=== PATIENT | male | born 1945 | race African-American/Black ===

== ENCOUNTER → 2016-12-07 | Outpatient (CLI) | payer BC ==
[2015-08-06 11:00] VITALS: BP 89/53
[~2016-12-07] MED LIST: ASPI-482 PO; ASPI325T11 PO; ATOR10TA60 PO; CARV3.122 PO; CILO100T PO; FERR325T72 PO; FURO40TA4 PO; LISI10TA2 PO; METO25TA4 PO; OXYC1TAB7 PO; POTA10TA12 PO
--- NOTE | 2016-12-07 13:04 | CARD ---
APPROVED REPORT EXAM: Two-dimensional and M-mode echocardiogram with Doppler and color Doppler. Other Information Quality : Average Rhythm : NSR INDICATION Cardiac Disease: CAD 2D DIMENSIONS RVDd2.8 (2.9-3.5cm)Left Atrium(2D)3.4 (1.6-4.0cm) IVSd0.8 (0.7-1.1cm)Aortic Root(2D)2.8 (2.0-3.7cm) LVDd4.3 (3.9-5.9cm)LVOT Diameter2.0 (1.8-2.4cm) PWd0.8 (0.7-1.1cm)LVDs2.1 (2.5-4.0cm) FS (%) 31.9 %SV69.5 ml LVEF(%)63.3 (>50%) Aortic Valve AoV Peak Wilbur.104.7cm/sAoV VTI24.9cm AO Peak GR.4.4mmHgLVOT Peak Wilbur.101.9cm/s LVOT VTI 23.97cmAO Mean GR.3mmHg JOSE MANUEL (VMAX)3.72xf3QHI (VTI)3.04cm2 Mitral Valve MV E Hhufyqjr38.7cm/sMV DECEL ECLF518km MV A Uvjobies26.6cm/sMV E Mean Gr.1mmHg MV WYA86gwC/A Ratio1.0 MV A Efkxzbwp700ztHEA (PHT)3.52cm2 TDI E/Lateral E'7.8E/Medial E'14.3 Pulmonary Valve PV Peak Eccajirf34.8cm/sPV Peak Grad.2mmHg RVOT VTI12.6cm Tricuspid Valve TR P. Kkxpfqvo757ez/sRAP OVYLSBBQ9daAs TR Peak Gr.37ltWwNVNR90mrKa Pulmonary Vein S1 Jrpsnypa83.7cm/sD2 Gneomhpf51.5cm/s LEFT VENTRICLE The left ventricle is normal size. There is normal left ventricular wall thickness. Left ventricle sy stolic function is normal. The Ejection Fraction is 60-65%. There is normal LV segmental wall motion. The left ventricular diastolic function and filling is normal for age. There is no ventricular septa l defect visualized. RIGHT VENTRICLE The right ventricle is normal size. The right ventricular systolic function is normal. ATRIA The left atrium size is normal. The right atrium size is normal. The interatrial septum is intact wit h no evidence for an atrial septal defect or patent foramen ovale as noted on 2-D or Doppler imaging. AORTIC VALVE The non coronary cusp is mildly calcified. The aortic valve is trileaflet. Doppler and Color Flow rev ealed no significant aortic regurgitation. There is no significant aortic valvular stenosis. MITRAL VALVE Mitral annular calcification is mild. There is no mitral valve stenosis. Doppler and Color Flow revea led mild mitral regurgitation. TRICUSPID VALVE The tricuspid valve is not well visualized. Doppler and Color Flow revealed trace to mild tricuspid r egurgitation. The PA pressure was estimated at 18 mmHg. There is no tricuspid valve stenosis. PULMONIC VALVE The pulmonic valve is not well visualized. Doppler and Color Flow revealed no pulmonic valvular regur gitation. There is no pulmonic valvular stenosis. GREAT VESSELS The aortic root is normal in size. Normal pulmonary venous flow (Doppler). The IVC was not well visua lized. PERICARDIAL EFFUSION There is no evidence of significant pericardial effusion. Critical Notification Critical Value: No <Conclusion> Left ventricle systolic function is normal. The Ejection Fraction is 60-65%. There is normal LV segmental wall motion. Mild mitral regurgitation. Trace to mild tricuspid regurgitation. The PA pressure was estimated at 18 mmHg. There is no evidence of significant pericardial effusion.
== END | disposition home or self-care (01) ==
LOC: ECHO 10:50
PROVIDERS: ATTEND Internal Medicine Cardiovascular Disease
DX: I08.1 Rheumatic disorders of both mitral and tricuspid valves (principal)
CPT/HCPCS: 93306

== ENCOUNTER → 2017-12-13 | Outpatient (CLI) | payer BC ==
[~2017-12-13] MED LIST changes: -ASPI-482 PO; -ASPI325T11 PO; -ATOR10TA60 PO; -CARV3.122 PO; -CILO100T PO; -FERR325T72 PO; -FURO40TA4 PO; -LISI10TA2 PO; -METO25TA4 PO; -OXYC1TAB7 PO; +PERFLUTREN PROTEIN-A MICROSPHR 0.22 MG/ML 3 ML VIAL. IV; -POTA10TA12 PO
[2017-12-13] MEDS: PERFLUTREN PROTEIN-A MICROSPHR 0.22 MG/ML 3 ML VIAL. IV (11:31)
== END | disposition home or self-care (01) ==
LOC: ECHO 09:01
DX: I25.10 Atherosclerotic heart disease of native coronary artery without angina pectoris (principal); I36.1 Nonrheumatic tricuspid (valve) insufficiency; K21.9 Gastro-esophageal reflux disease without esophagitis; I13.0 Hypertensive heart and chronic kidney disease with heart failure and stage 1 through stage 4 chronic kidney disease, or unspecified chronic kidney disease; I50.9 Heart failure, unspecified; N18.2 Chronic kidney disease, stage 2 (mild); E83.42 Hypomagnesemia; E78.5 Hyperlipidemia, unspecified; E78.00 Pure hypercholesterolemia, unspecified; Z68.29 Body mass index [BMI] 29.0-29.9, adult
CPT/HCPCS: C8929; Q9956

== ENCOUNTER → 2018-01-03 | Outpatient (CLI) | payer BC ==
[2015-08-06 11:00] VITALS: BP 89/53
[~2018-01-03] MED LIST changes: +ASPI-482 PO; +ASPI325T11 PO; +ATOR10TA60 PO; +CARV3.122 PO; +CILO100T PO; +FERR325T72 PO; +FURO40TA4 PO; +LISI10TA2 PO; +METO25TA4 PO; +OXYC1TAB7 PO; -PERFLUTREN PROTEIN-A MICROSPHR 0.22 MG/ML 3 ML VIAL. IV; +POTA10TA12 PO
--- NOTE | 2018-01-04 07:42 | RAD ---
MR#: [id number] Date of Study: 01/03/2018 Ordering Physician: JONAS SANTORO, Referring Physician: JONAS SANTORO, Tech: Alexia Silveira, VANIA, RVT, RTR APPROVED REPORT Patient Location: OUT-PATIENT Indications Edema PAD Lower Extremity Discoloration VELOCITY AND DOPPLER WAVEFORM ANALYSIS RIGHT cm/secWaveformSeverity LEFT cm/secWaveform Severity pCFA 211.7pCFA 274.3 dCFA dCFA 183.4 Prof Fem Art. 170.1Prof Fem Art. 105.3 Fem Art Prox. 148.1Fem Art Prox. 208.2 Fem Art Mid. 103.0Fem Art Mid. 109.4 Fem Art Dist. 114.5Fem Art Dist. 113.6 Pop Art(AK) 256.0Pop Art(AK) 95.7 PARI MUTUEL TICKET CASHIER Dist. 21.3PTA Dist. Per Art Prox. 109.9Per Art Prox. 44.6 BAILEY Prox. BAILEY Prox. 49.6 BAILEY Dist. 34.0ATA Dist. DPA 25DPA 80 Findings Grayscale images of the bilateral lower extremity arterial vessels demonstrate diffuse moderate to se tanja atherosclerotic plaque. Spectral waveforms are monophasic throughout the arterial course suggestive of loss of arterial elast icity and/or severe LV dysfunction. There are elevated velocities in the common femoral artery bilaterally suggestive of inflow disease e specially in light of the monophasic waveforms. There is probable greater than 50% stenosis involving the right popliteal artery with a peak systolic velocity of 256 7 m/s. Suspect one-vessel runoff in the form of peroneal artery with severe diffuse disease of the posterior tibial and anterior tibial arteries on the right. There is likely a diffuse 50% stenosis involving the mid to distal SFA and popliteal artery. The post erior tibial artery was not visualized. Blunted waveforms are noted in the peroneal and anterior tibi al artery with diminished velocities. Critical Notification Critical Value: No <Conclusion> 1. 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 Signed by : Bhargav Wiggins, Electronically Approved : 01/04/2018 07:41:56
--- NOTE | 2018-01-04 07:46 | RAD ---
MR#: [id number] Date of Study: 01/03/2018 Ordering Physician: JONAS SANTORO, Referring Physician: JONAS SANTORO, Tech: Alexia Silveira RDMS, RVT, RTR APPROVED REPORT Patient Location : OUT-PATIENT Indications Lower Extremity Edema : Bilateral Skin Changes Greater Saphenous Veins (GSV) Significant venous relux noted in the RIGHT GSV at the following levels : Superficial Femoral Junctio n, Proximal Thigh, Mid Thigh, Distal Thigh, Proximal Calf, Mid Calf, Distal Calf Significant venous relux noted in the LEFT GSV at the following levels : Superficial Femoral Junction , Proximal Thigh, Mid Thigh, Distal Thigh, Proximal Calf, Mid Calf, Distal Calf Findings Grayscale images of the saphenofemoral junctions and the right and left saphenous veins does not reve al any obvious evidence of thrombus. The proximal left great saphenous vein appears to been harvested for prior bypass. Incidental findings of a maximum 2.5 x 1.3 cm lymph node in the right groin as well as a 2.4 x 1.6 x 1.5 cm seroma noted in the left groin from previous scar related to bypass surgery. There is no evidence of reflux in the left mid to distal greater saphenous vein and lesser saphenous vein. On the right there is mild reflux at a maximum time of 1.1 seconds noted in the greater saphenous vei n. No reflux in the right lesser saphenous vein. Critical Notification Critical Value: No <Conclusion> 1. Minimally positive reflux in the right great saphenous vein. Otherwise unremarkable for reflux 2. Enlarged lymph node in the right groin with measurements as noted above 3. Incidental finding of a seroma with measurements as noted above in the left groin. Signed by : Bhargav Wiggins, Electronically Approved : 01/04/2018 07:45:47
== END | disposition home or self-care (01) ==
LOC: US 12:42
PROVIDERS: ATTEND Internal Medicine Cardiovascular Disease
DX: I73.9 Peripheral vascular disease, unspecified (principal); R60.0 Localized edema; R59.9 Enlarged lymph nodes, unspecified; N18.2 Chronic kidney disease, stage 2 (mild); M19.90 Unspecified osteoarthritis, unspecified site; I25.10 Atherosclerotic heart disease of native coronary artery without angina pectoris; K21.9 Gastro-esophageal reflux disease without esophagitis; Z87.891 Personal history of nicotine dependence
CPT/HCPCS: 93925; 93970

== ENCOUNTER → 2018-09-25 | Outpatient (CLI) | payer BC ==
[2018-01-18 13:50] VITALS: BP 146/65
[~2018-09-25] MED LIST changes: +CARV3.1210 PO; -CARV3.122 PO; +FURO20TA3 PO; +POTA8CAP PO
--- NOTE | 2018-09-26 08:13 | RAD ---
MR#: [id number] Date of Study: 09/25/2018 Ordering Physician: JONAS SANTORO, Referring Physician: JONAS SANTORO, Tech: Halley Cummins RVT, RDMS APPROVED REPORT Patient Location: OUT-PATIENT Laterality:Bilateral Indications Bruit Risk Factors Hypertension: Smoking Previous smoker for 35 years Doppler Spectral Velocity Analysis Right Left pCCA 70/11 cm/spCCA 104/15 cm/s mCCA 90/11 cm/smCCA 102/16 cm/s dCCA 66/11 cm/sdCCA 77/12 cm/s ECA 141/12 cm/sECA 168/17 cm/s pICA 204/63 cm/spICA 57/16 cm/s Sigifredo 145/34 cm/smICA 265/68 cm/s dICA 78/15 cm/sdICA 222/40 cm/s Vert. 59/ cm/sVert. 30/ cm/s ICA/CCA 2.27ICA/CCA 2.55 Findings Grayscale images of the bilateral carotid arteries is partially limited due to tortuous internal albright tid arteries. There is plaque seen bilaterally mostly localized to the bulb and internal carotid vess els. On the right peak systolic velocities are suggestive of an overall 50-69% stenosis. On the left there is a suggestion of greater than 70% stenosis involving the mid internal carotid artery. ICA to CCA ratios is approximately 2.6. The vertebral velocities are antegrade bilaterally. Critical Notification Critical Value: No <Conclusion> 1. Probable moderate and severe stenosis involving the right and left carotid arteries respectively. 2. Due to the tortuous nature of the carotid arteries could consider CT angiogram of the neck for fur ther delineation. Signed by : Bhargav Wiggins, Electronically Approved : 09/26/2018 08:13:25
== END | disposition home or self-care (01) ==
LOC: US 15:31
PROVIDERS: ATTEND Internal Medicine Cardiovascular Disease
DX: I65.23 Occlusion and stenosis of bilateral carotid arteries (principal); I77.1 Stricture of artery; I10 Essential (primary) hypertension; Z87.891 Personal history of nicotine dependence
CPT/HCPCS: 93880

== ENCOUNTER → 2018-10-09 | Outpatient (CLI) | payer BC ==
[2018-01-18 13:50] VITALS: BP 146/65
[~2018-10-09] MED LIST changes: +CONTRAST GIVEN. MC PRN; +IOHEXOL 300 MG/ML 100ML VIAL. IV ONE; +IOHEXOL 350 MG/ML 100 ML VIAL. ONE
[2018-10-09 10:41] LABS: GFR 88.6
--- NOTE | 2018-10-09 15:23 | RAD ---
CTA of the neck without comparison for carotid stenosis. TECHNIQUE: Contiguous helical 1 mm axial images are obtained from the aortic arch to the skull base following administration of IV contrast in the arterial phase. Sagittal and coronal MIPS and 3-D volume rendered vascular images are evaluated. FINDINGS: Nonvascular: Lung apices are clear. There has been a prior median sternotomy. No suspicious adenopathy is identified. Parotid glands are normal. The mastoid air cells are clear. Visualized paranasal sinuses are clear. There is significant nasal septal deviation to the left. There is a mixed lytic and blastic appearance of the maxilla diffusely, with areas of lateral erosions along the right lateral maxilla. The maxilla is edentulous. Findings are likely due to sequelae of prior periodontal infection. Active disease cannot be excluded. Severe multilevel degenerative changes of the cervical spine are present with bulky posterior osteophytes and ossification of the posterior longitudinal ligament at multiple levels. This likely creates some degree of bony canal stenosis which could be better evaluated with MRI if clinically warranted. Vascular findings: There is patchy atherosclerosis of the aortic arch. The great vessels are patent. Brachycephalic artery is free of any significant disease. On the right, there is mild atherosclerosis of the common carotid artery with no significant stenosis. There is bulky calcified atherosclerosis of the right internal carotid artery at its origin, resulting in roughly 65 percent stenosis. There is moderate multifocal atherosclerosis throughout the high cervical and intracranial internal carotid artery as well, and there is a bulky soft atherosclerotic plaque within the cavernous segment which appears to result in greater than 50 percent focal stenosis. On the left, there is mild atherosclerosis of the common carotid artery with no significant stenosis. There is dense atherosclerosis of the origin of the left internal carotid artery resulting in roughly 60 percent stenosis. Mild to moderate changes are seen throughout the high cervical and intracranial internal carotid artery as well, and there may be a stenosis in excess of 50 percent at the terminal aspect of the petrous portion of the left internal carotid artery. There is a 50 percent stenosis of the proximal left subclavian artery. Vertebral arteries are codominant and widely patent save for mild narrowing at their origins. Left PICA is widely patent. Origin of the right PICA is not identified. Bilateral anterior inferior cerebellar arteries are patent as are superior cerebellar arteries. There is a patent left posterior communicating artery. Both posterior cerebral arteries are patent, though the P1 segments are not included on the exam. The A1 segments of the anterior cerebral arteries are also not included as well. IMPRESSION: 1. Right proximal internal carotid artery stenosis of approximately 65 percent. There is likely a stenosis of the intracranial internal carotid artery of greater than 50 percent as well. 2. Left proximal internal carotid artery stenosis of approximate 60 percent. There is likely a stenosis of the intracranial internal carotid artery of greater than 50 percent on this side also. 3. Approximately 50 percent stenosis of the left proximal subclavian artery. 4. Codominant and patent vertebral arteries. 5. Severe cervical spinal canal stenosis due to degenerative disc disease and posterior longitudinal ligament ossification. If clinically warranted, this could be better characterized with MRI. 6. Abnormal mixed lytic and blastic permeative appearance of the maxilla with lateral erosions. This is likely due to sequelae of long-standing severe periodontal disease. Active infection cannot be excluded. Stenosis calculations for CT, MR and conventional angiography are based upon measurement of the distal ICA diameter in accordance with the NASCET methodology. Stenosis calculations for carotid ultrasound studies are derived from validated velocity criteria which are known to correlate with the NASCET methodology. RS Compliance Statement: One or more of the following individualized dose reduction techniques were utilized for this examination: 1. Automated exposure control 2. Adjustment of the mA and/or kV according to patient size 3. Use of iterative reconstruction technique Electronically signed by: Abdiel Holden MD (10/09/2018 3:20 PM) [facility]
== END | disposition home or self-care (01) ==
LOC: CT 10:06
PROVIDERS: ATTEND Internal Medicine Cardiovascular Disease
DX: I65.23 Occlusion and stenosis of bilateral carotid arteries (principal); I25.10 Atherosclerotic heart disease of native coronary artery without angina pectoris; M48.02 Spinal stenosis, cervical region; M50.30 Other cervical disc degeneration, unspecified cervical region; J34.2 Deviated nasal septum; M47.812 Spondylosis without myelopathy or radiculopathy, cervical region; M25.78 Osteophyte, vertebrae; I70.0 Atherosclerosis of aorta
CPT/HCPCS: 36415; 70498; 82565; Q9967

== ENCOUNTER → 2019-11-13 | Outpatient (CLI) | payer BC ==
[2018-01-18 13:50] VITALS: BP 146/65
[~2019-11-13] MED LIST changes: -CONTRAST GIVEN. MC PRN; -IOHEXOL 300 MG/ML 100ML VIAL. IV ONE; -IOHEXOL 350 MG/ML 100 ML VIAL. ONE; -POTA10TA12 PO; +POTASSIUM CHLO10 ME1 PO
--- NOTE | 2019-11-13 13:32 | CARD ---
MR#: [id number] Date of Study: 11/13/2019 Ordering Physician: JONAS SANTORO, Referring Physician: JONAS SANTORO, Tech: Alexia Malcolmjaime APPROVED REPORT EXAM: Two-dimensional and M-mode echocardiogram with Doppler and color Doppler. Other Information Quality : AverageHR: 79bpm INDICATION Cardiac Disease: CAD Surgery/Intervention CABG: Date: 2015 Site: [place] RISK FACTORS Hypertension Hyperlipidemia 2D DIMENSIONS RVDd2.7 (2.9-3.5cm)Left Atrium(2D)3.2 (1.6-4.0cm) IVSd0.8 (0.7-1.1cm)Aortic Root(2D)3.0 (2.0-3.7cm) LVDd4.9 (3.9-5.9cm)LVOT Diameter2.0 (1.8-2.4cm) PWd1.1 (0.7-1.1cm)LVDs3.0 (2.5-4.0cm) FS (%) 39.5 %SV78.5 ml LVEF(%)69.9 (>50%) Aortic Valve AoV Peak Wilbur.110.9cm/sAoV VTI19.6cm AO Peak GR.4.9mmHgLVOT Peak Wilbur.98.8cm/s LVOT VTI 23.17cmAO Mean GR.3mmHg JOSE MANUEL (VMAX)2.79hg6HPP (VTI)3.66cm2 Mitral Valve MV E Ntjzklrl32.0cm/sMV DECEL DCQX505su MV A Itpaobcf90.9cm/sMV E Mean Gr.2mmHg MV KOX26frQ/A Ratio0.8 MVA (PHT)2.93cm2 TDI E/Lateral E'8.4E/Medial E'13.0 Pulmonary Valve PV Peak Ifbyqedv12.9cm/sPV Peak Grad.3mmHg Tricuspid Valve TR P. Zdivtepy794tu/sRAP HTBYUPZU7dtIg TR Peak Gr.80kcJnLDAI61pyJm Pulmonary Vein S1 Haiegpoc88.3cm/sD2 Zzcsmrcp78.5cm/s PVa sboyporh670vsor LEFT VENTRICLE The left ventricle is normal size. There is borderline to mild concentric left ventricular hypertroph y. The left ventricular systolic function is normal and the ejection fraction is within normal range. The Ejection Fraction is 55%. There is normal LV segmental wall motion. Transmitral Doppler flow pat tern is Grade I-abnormal relaxation pattern. RIGHT VENTRICLE The right ventricle is normal size. There is normal right ventricular wall thickness. The right ventr icular systolic function is normal. ATRIA The left atrium size is normal. The right atrium size is normal. The interatrial septum is intact wit h no evidence for an atrial septal defect or patent foramen ovale as noted on 2-D or Doppler imaging. AORTIC VALVE The aortic valve is calcified but opens well. Doppler and Color Flow revealed no significant aortic r egurgitation. There is no significant aortic valvular stenosis. Calculated aortic valve area is 3.5 c m2 with maximum pressure gradient of 5 mmHg and mean pressure gradient of 3 mmHg. MITRAL VALVE The mitral valve is normal in structure and function. There is no evidence of mitral valve prolapse. There is no mitral valve stenosis. Doppler and Color-flow revealed trace mitral regurgitation. TRICUSPID VALVE The tricuspid valve is normal in structure and function. Doppler and Color Flow revealed trace tricus pid regurgitation with an estimated PAP of 29 mmHg. There is no tricuspid valve stenosis. PULMONIC VALVE The pulmonic valve is not well visualized. Doppler and Color Flow revealed trace pulmonic valvular re gurgitation. There is no pulmonic valvular stenosis. GREAT VESSELS The aortic root is normal in size. The IVC was not visualized. PERICARDIAL EFFUSION There is no evidence of significant pericardial effusion. Critical Notification Critical Value: No <Conclusion> The left ventricular systolic function is normal and the ejection fraction is within normal range. Th e Ejection Fraction is 55%. There is normal LV segmental wall motion. Signed by : Bhargav Wiggins, Electronically Approved : 11/13/2019 13:31:44
== END | disposition home or self-care (01) ==
LOC: ECHO 10:49
PROVIDERS: ATTEND Internal Medicine Cardiovascular Disease
DX: I35.8 Other nonrheumatic aortic valve disorders (principal); I25.10 Atherosclerotic heart disease of native coronary artery without angina pectoris
CPT/HCPCS: 93306

== ENCOUNTER → 2020-05-26 | Outpatient (CLI) | payer BC, MEDICARE ==
[2018-01-18 13:50] VITALS: BP 146/65
[~2020-05-26] MED LIST changes: +LISI10TA16 PO; -LISI10TA2 PO; +REGADENOSON 0.4 MG/5 ML DISP.SYRIN. IV ONE
--- NOTE | 2020-05-26 12:41 | RAD ---
MR#: [id number] Date of Study: 05/26/2020 Ordering Physician: JONAS SANTORO, Referring Physician: MARCELA FREGOSO Tech: Vida Sterling RT (R) (N) APPROVED REPORT Test Type: Pharmacological Stress Nurse/Tech: Gabriele Luz Rn Test Indications: CAD Cardiac History: CABG x5 in 2016, CAD, HTN, See EMR. Medications: ASA 81mg, See EMR. Medical History: See EMR. Resting ECG: SR Resting Heart Rate: 90 bpm Resting Blood Pressure: 135/71mmHg Pretest Chest Pain: No chest pain Nurse/Tech Notes Lungs CTA, Heart tones regular. Consent: The procedure was explained to the patient in lay terms. Informed consent was witnessed. Isra eout was entered into [facility] Com. History and Stress Test performed by TRUMAN Mckeon, PARKER (R) (N) Pharm. Details Pharmacologic stress testing was performed using 0.4mg per 5ml of regadenoson given intravenously ove r 7-10 seconds. Stress Symptoms Nausea POST EXERCISE Max HR: 118 bpm Max Blood Pressure: 135/63mmHg Blood Pressure response to exercise: Normal blood pressure response during stress. Heart Rate response to exercise: WNL Chest Pain: No. Arrhythmia: No. ST Change: No. INTERPRETATION Stress EKG Conclusion: No evidence of stress induced EKG changes. Imaging Protocol IMAGE PROTOCOL: Rest Tc-99m/stress Tc-99m 1 day Rest: Stress: Viability: Radiopharm.Tc99m XnukanxuiMv72v Sestamibi Dose10.4mCi 32mCi Duration 15min. 10min. Img Date 05/26/2020 05/26/2020 Inj-Img Souy11qzi. 60min. Rest Admin Site:IV - Left WristAdministrator:TRUMAN Mckeon ARRT (R)(N) Stress Admin Site: IV - Left WristAdministrator: TRUMAN Mckeon, PARKER (R)(N) STRESS DATA End Diast. Vol.26.0mlAv. Heart Xxnz204.0bpm End Syst. Vol.2.0mlCO Index BSA0.0L/min Myocardial Mass61.0gEject. Ojtnsesa00.0% Stress Rates Pk. Fill Rate5.13EDV/secLVtime Pk. Fill 74.74msec Pk. Empty Rate7.56ESV/secLVtime Pk. Eject92.19msec 1/3 Pk. Fill3.55EDV/sec Stress Scores Regional WT0.00Summed WT0.00 Regional WM0.00Summed WM3.00 The rest and stress images show normal perfusion, normal contraction and thickening. LV Perf. Quant 17 Seg. SSS2.00 17 Seg. SRS0.00 17 Seg. SDS2.00 Stress Defect Extent (% LAD)11.90Rest Defect Extent (% LAD)0.00Rev. Defect Extent (% LAD)6.90 Stress Defect Extent (% LCX) 7.50Rest Defect Extent (% LCX)0.00Rev. Defect Extent (% LCX)0.00 Stress Defect Extent (% RCA)0.00Rest Defect Extent (% RCA)0.00Rev. Defect Extent (% RCA)0.00 Stress Defect Extent (% ÁNGEL)7.00Rest Defect Extent (% ÁNGEL)0.00Rev. Defect Extent (% ÁNGEL)3.90 Other Information Quality:Good Risk Assessment: Low Risk Conclusion 1. No evidence of stress induced EKG changes. 2. Normal perfusion at stress/rest. 3. Normal EF at > 60%. 4. Low risk study. Signed by : Bhargav Wiggins, Electronically Approved : 05/26/2020 12:40:55
== END ==
LOC: NM 08:12
PROVIDERS: ATTEND Internal Medicine Cardiovascular Disease
DX: I25.10 Atherosclerotic heart disease of native coronary artery without angina pectoris (principal); I10 Essential (primary) hypertension
CPT/HCPCS: 78452; 93017; A9500; J2785

== ENCOUNTER → 2020-07-09 | Outpatient (CLI) | payer MEDICARE ==
[2018-01-18 13:50] VITALS: BP 146/65
[~2020-07-09] MED LIST changes: -REGADENOSON 0.4 MG/5 ML DISP.SYRIN. IV ONE
--- NOTE | 2020-07-09 12:39 | RAD ---
US ABDOMEN COMPLETE History: Reason: ELEVATED LFTS / Spl. Instructions: / History: Comparison: None. Technique: Sonographic examination of the abdomen. Findings: Liver: The liver measures 16.4 cm. Markedly increased hepatic echogenicity. No focal hepatic lesions . Hepatopetal flow in the portal vein. Gallbladder: Shadowing gallstone measures 1.7 cm diameter. No wall thickening or pericholecystic flui d. Bile ducts: The common duct measures 4 mm. Pancreas: Poorly visualized. Limited by bowel gas artifact. Spleen: 8.0 cm. Normal size and echotexture. No focal lesion. Right kidney: 11.8 cm in length. Inferior pole cyst measuring 3.2 cm. No calculi or hydronephrosis. Left kidney: 10.7 cm in length. Interpolar cyst measuring 3.5 cm. No calculi or hydronephrosis. Aorta/IVC: Limited evaluation. Visualized portions unremarkable. Other: No ascites. Impression: 1. Marked hepatic steatosis. 2. Cholelithiasis without evidence for acute cholecystitis. 3. Bilateral benign renal cysts. Electronically signed by: Prashanth Ceron MD (07/09/2020 12:37 PM) [facility]
== END ==
LOC: US 09:33
PROVIDERS: ATTEND Internal Medicine
DX: K80.20 Calculus of gallbladder without cholecystitis without obstruction (principal); N28.1 Cyst of kidney, acquired; K76.0 Fatty (change of) liver, not elsewhere classified
CPT/HCPCS: 76700

== ENCOUNTER → 2021-06-22 | Outpatient (CLI) | payer MEDICARE ==
[2018-01-18 13:50] VITALS: BP 146/65
--- NOTE | 2021-06-22 13:50 | RAD ---
EXAM: Bilateral digital diagnostic mammogram with tomosynthesis; bilateral breast sonogram. HISTORY: 75-year-old female presents with bilateral breast lumps. TECHNIQUE: Full-field digital craniocaudal and mediolateral oblique 2D and 3D tomosynthesis images of both breasts are obtained for evaluation. Computer aided detection was applied. Sonographic imaging of both breasts and axillary regions was performed. COMPARISON: None. BREAST PARENCHYMAL DENSITY: Level B - Scattered fibroglandular densities. FINDINGS: There is increased density within the anterior aspects of the right greater than left breas t, the mammographic appearance of which favors gynecomastia. There is no mass or architectural distor tion. There is no suspicious calcification. There are benign-appearing axillary lymph nodes. Specific imaging of both breasts demonstrates decreased echogenicity within the subareolar aspects of both breasts due to gynecomastia. No suspicious mass is seen. There is no suspicious axillary lymph node. IMPRESSION: 1. Mammographic and sonographic findings favoring a right greater than left gynecomastia. Correlate f or drug or endocrine related etiologies. 2. Continued clinical follow-up of palpable abnormalities is recommended. Negative imaging should not preclude the decision to biopsy a palpable abnormality if there is continuing concern. 3. BI-RADS Category 2: Benign finding(s). If your mammogram demonstrates that you have dense breast tissue, which could hide abnormalities, and if you have other risk factors for breast cancer that have been identified, you might benefit from s upplemental screening tests that may be suggested by your ordering physician. Dense breast tissue, i n and of itself, is a relatively common condition. This information is not provided to cause undue c oncern, but rather to raise your awareness and to promote discussion with your physician regarding th e presence of other risk factors, in addition to dense breast tissue. A report of your mammography re sults will be sent to you and your physician. You should contact your physician if you have any ques tions or concerns regarding this report. Mammography is a sensitive method for finding small breast cancers, but it does not detect them all a nd is not a substitute for careful clinical examination. A negative mammogram does not negate a clin ically suspicious finding and should not result in delay in biopsying a clinically suspicious abnorma lity. PQRS compliance statement - Patient information was entered into a reminder system with a target due date for the next mammogram. "Our facility is accredited by the [employer] Mammography Program." Electronically signed by: Vida Vargas MD (06/22/2021 1:48 PM) [id number]
== END ==
LOC: MAMMO 12:43
PROVIDERS: ATTEND Internal Medicine
DX: N62 Hypertrophy of breast (principal); R92.8 Other abnormal and inconclusive findings on diagnostic imaging of breast
CPT/HCPCS: 76641; 77066; G0279; 77062

== ENCOUNTER → 2021-07-06 | Outpatient (CLI) | payer MEDICARE ==
[2018-01-18 13:50] VITALS: BP 146/65
[~2021-07-06] MED LIST changes: +REGADENOSON 0.4 MG/5 ML DISP.SYRIN. IV ONE
--- NOTE | 2021-07-06 13:30 | RAD ---
MR#: [id number] Date of Study: 07/06/2021 Ordering Physician: JONAS SANTORO, Referring Physician: MARCELA FREGOSO Tech: RT Ca RiveraR) (N) APPROVED REPORT Test Type: Pharmacological Stress Nurse/Tech: Geni Davis R.N. Test Indications: cad Cardiac History: cabg 2015, high chol, htn, Medications: see ehr Medical History: see ehr Resting ECG: sr Resting Heart Rate: 67 bpm Resting Blood Pressure: 142/63mmHg Pretest Chest Pain: No chest pain Nurse/Tech Notes lungs cta, heart tones regular Consent: The procedure was explained to the patient in lay terms. Informed consent was witnessed. Isra eout was entered into [employer]. History and Stress Test performed by RT Diana Voss) (N) Pharm. Details Pharmacologic stress testing was performed using 0.4mg per 5ml of regadenoson given intravenously ove r 7-10 seconds. Stress Symptoms No chest pain or symptoms. POST EXERCISE Reason for Termination: Infusion complete Target HR: no Max HR: 91 bpm Max Blood Pressure: 162/61mmHg Chest Pain: No. Arrhythmia: No. ST Change: No. INTERPRETATION Stress EKG Conclusion: Baseline EKG showed sinus rhythm. No ischemic changes at peak stress. No arr hythmias. Imaging Protocol IMAGE PROTOCOL: Rest Tc-99m/stress Tc-99m 1 day Rest: Stress: Viability: Radiopharm.Tc99m [id number] Sestamibi Dose10.2mCi 31.1mCi Duration 15min. 15min. Img Date 07/06/2021 07/06/2021 Inj-Img [id number]. 60min. Rest Admin Site:IV - Right ForearmAdministrator:TRUMAN Mckeon, ARRT (R)(N) Stress Admin Site: IV - Right ForearmAdministrator: RT Diana Voss)(N) STRESS DATA End Diast. Vol.34.0mlAv. Heart Rate85.0bpm LVEDV index BSA18.0mlCardiac Output0.0L/min End Syst. Vol.2.0mlCO Index BSA0.0L/min LVESV index BSA1.0mlMyocardial Mass71.0g Eject. Orefyjvp04.0% Stress Scores Regional WT0.00Summed WT0.00 Regional WM0.00Summed WM3.00 Study quality was good. Left Ventricular size was Normal at Rest and Stress. Lung uptake was . Left Ventricular ejection fraction is >80%. The rest and stress images show normal perfusion, normal contraction and thickening. LV Perf. Quant 17 Seg. SSS1.00 17 Seg. SRS0.00 17 Seg. SDS1.00 Stress Defect Extent (% LAD)0.00Rest Defect Extent (% LAD)0.00Rev. Defect Extent (% LAD)0.00 Stress Defect Extent (% LCX) 10.00Rest Defect Extent (% LCX)0.00Rev. Defect Extent (% LCX)5.00 Stress Defect Extent (% RCA)0.00Rest Defect Extent (% RCA)0.00Rev. Defect Extent (% RCA)0.00 Stress Defect Extent (% ÁNGEL)1.70Rest Defect Extent (% ÁNGEL)0.00Rev. Defect Extent (% ÁNGEL)0.90 Conclusion 1. Regadenoson cardioisotope stress test did not show any evidence of ischemia or infarct. 2. Hyperdynamic left ventricle systolic function with ejection fraction calculated at greater than 80 %. 3. Low risk for cardiac events. Signed by : Jonas Santoro, Electronically Approved : 07/06/2021 13:29:42
--- NOTE | 2021-07-06 14:02 | CARD ---
MR#: [id number] Date of Study: 07/06/2021 Ordering Physician: JONAS GARCIA, Referring Physician: JONAS GARCIA, Tech: Alexia Barroso RUST APPROVED REPORT EXAM: Two-dimensional and M-mode echocardiogram with Doppler and color Doppler. Other Information Quality : AverageHR: 73bpm INDICATION Cardiac Disease: CAD Surgery/Intervention CABG: Date: 2015 Site: [place] RISK FACTORS Hypertension Hyperlipidemia 2D DIMENSIONS Left Atrium(2D)2.8 (1.6-4.0cm)IVSd0.8 (0.7-1.1cm) Aortic Root(2D)3.1 (2.0-3.7cm)LVDd4.4 (3.9-5.9cm) LVOT Diameter2.1 (1.8-2.4cm)PWd1.0 (0.7-1.1cm) LVDs2.5 (2.5-4.0cm)FS (%) 42.7 % SV66.1 mlLVEF(%)51.9 (>50%) Aortic Valve AoV Peak Wilbur.90.9cm/sAoV VTI22.9cm AO Peak GR.3.3mmHgLVOT Peak Wilbur.81.3cm/s LVOT VTI 18.91cmAO Mean GR.2mmHg JOSE MANUEL (VMAX)2.13ro5YTC (VTI)2.78cm2 Mitral Valve MV E Zlrvujro25.2cm/sMV DECEL [id number] MV A Ojdlbhcu04.9cm/sMV E Mean Gr.1mmHg MV [id number]/A Ratio0.9 MVA (PHT)2.76cm2 Pulmonary Valve PV Peak Fhgalaxz81.4cm/sPV Peak Grad.3mmHg LEFT VENTRICLE The left ventricle is normal size. There is normal left ventricular wall thickness. The left ventricu lar systolic function is normal. The Ejection Fraction is 55-60%. There is normal LV segmental wall m otion. Transmitral Doppler flow pattern is Grade II-pseudonormal filling dynamics. RIGHT VENTRICLE The right ventricle is normal size. There is normal right ventricular wall thickness. The right ventr icular systolic function is normal. ATRIA The left atrium size is normal. The right atrium size is normal. The interatrial septum is intact wit h no evidence for an atrial septal defect or patent foramen ovale as noted on 2-D or Doppler imaging. AORTIC VALVE The aortic valve is calcified but opens well. Doppler and Color Flow revealed no significant aortic r egurgitation. Calculated aortic valve area is 2.64 cm2 with maximum pressure gradient of 4 mmHg and m elliot pressure gradient of 2 mmHg. There is no significant aortic valvular stenosis. MITRAL VALVE The mitral valve is normal in structure and function. There is no evidence of mitral valve prolapse. There is no mitral valve stenosis. Doppler and Color-flow revealed trace mitral regurgitation. TRICUSPID VALVE The tricuspid valve is normal in structure and function. Doppler and Color Flow revealed no tricuspid valve regurgitation noted. There is no tricuspid valve stenosis. PULMONIC VALVE The pulmonic valve is not well visualized. Doppler and Color Flow revealed trace pulmonic valvular re gurgitation. GREAT VESSELS The aortic root is normal in size. The IVC is normal in size and collapses >50% with inspiration. PERICARDIAL EFFUSION There is no evidence of significant pericardial effusion. Critical Notification Critical Value: No <Conclusion> The left ventricular systolic function is normal. The Ejection Fraction is 55-60%. There is normal LV segmental wall motion. Transmitral Doppler flow pattern is Grade II-pseudonormal filling dynamics. Trace mitral regurgitation. There is no evidence of significant pericardial effusion. Signed by : Jonas Garcia, Electronically Approved : 07/06/2021 14:01:35
== END ==
LOC: NM 09:07
PROVIDERS: ATTEND Internal Medicine Cardiovascular Disease
DX: I35.1 Nonrheumatic aortic (valve) insufficiency (principal); I25.10 Atherosclerotic heart disease of native coronary artery without angina pectoris
CPT/HCPCS: 78452; 93017; 93306; A9500; J2785; C8929